=== PATIENT | male | born 1980 | race Native Hawaiian/Other Pacific Islander ===

== ENCOUNTER → 2021-07-27 13:37 | Outpatient (CLI) | payer OTHER, MEDICAID, SELFPAY ==
--- NOTE | 2021-07-27 | DI.MRI.S_ITS ---
PROCEDURE: MR KNEE LT WO CON INDICATIONS: Unilateral primary osteoarthritis, left knee TECHNIQUE: Noncontrast sagittal PD fast spin echo and T2 fast spin echo with fat saturation, sagittal 3-D FLASH with fat saturation; coronal T1 spin echo and PD fast spin echo with fat saturation, and axial PD fast spin echo with fat saturation through the knee. COMPARISON: None. FINDINGS: Menisci: Medial meniscus: Intact. Lateral meniscus: Ill-defined signal change involving the anterior horn and the anterior root although this could be related to myxoid degeneration. Ill-defined tear in the differential. Cruciate ligaments: Anterior cruciate ligament: Intact. Posterior cruciate ligament: Intact. Medial structures: The medial collateral ligament: Intact. Semimembranosus tendon: Intact. Visualized pes anserinus tendons: Intact. Bursal fluid: none. Lateral structures: The lateral collateral ligament intact. Biceps femoris tendon appears intact. Popliteus tendon grossly unremarkable. Iliotibial band appears intact. Anterior structures: Quadriceps tendon: Intact. Medial patellofemoral ligament: Intact. Lateral patellofemoral ligament: Intact. Patellar tendon: Mild tendinopathy. Anterior soft tissues: Prepatellar and superficial infrapatellar subcutaneous edema/fluid. Deep infrapatellar region: Normal. Bones and cartilage: Marrow: No focal marrow contusion or discrete low signal fracture line. Medial compartment: Mild diffuse surface fraying of the femoral and tibial articular cartilage. Lateral compartment: Diffuse surface fraying of the femoral cartilage. There is intrasubstance signal change and partial-thickness loss of the central tibial cartilage Patellofemoral compartment: Diffuse surface fraying of the patellar cartilage. Femoral trochlear cartilage appears grossly intact. Joint space: Effusion: Small joint effusion. Popliteal fossa: No Anderson's cyst. Loose bodies: None. IMPRESSION: Ill-defined signal changes involving the anterior root and horn of the lateral meniscus which could be related to myxoid degeneration although cannot exclude poorly defined tear. Please correlate to clinical exam findings. Tricompartmental joint degeneration as above. Small joint effusion Patellar tendinopathy with adjacent fluid/edema. Dictated by: Shad Castro M.D. on 07/27/2021 at 14:54 Approved by: Shad Castro M.D. on 07/27/2021 at 15:03
== END ==
PROVIDERS: PCP Family Medicine; Referring Provider Student in an Organized Health Care Education/Training Program; Visit Provider Student in an Organized Health Care Education/Training Program
DX: M17.12 Unilateral primary osteoarthritis, left knee (principal); M25.462 Effusion, left knee
CPT/HCPCS: 73721

== ENCOUNTER → 2022-03-27 08:59 | Outpatient (CLI) | payer OTHER, MEDICAID, SELFPAY ==
[2022-03-30 14:17] LABS: QuantiFERON Mitogen Value >10.00 IU/mL (.); QuantiFERON Nil Value 0.05 IU/mL (.); QuantiFERON TB Gold Plus Negative (Negative); QuantiFERON TB1 Ag Value 0.06 IU/mL (.); QuantiFERON TB2 Ag Value 0.05 IU/mL (.)
== END ==
PROVIDERS: PCP Family Medicine; Referring Provider Family Medicine; Visit Provider Family Medicine
DX: Z11.7 Encounter for testing for latent tuberculosis infection (principal)
CPT/HCPCS: 36415; 86480

== ENCOUNTER → 2025-06-08 16:34 | Outpatient (CLI) | payer OTHER, SELFPAY ==
[2025-06-08 17:23] LABS: COVID-19 CEPHEID 4-PLEX PCR Negative (Negative); Influenza A - CEPHEID Flu A NEGATIVE (NEGATIVE); Influenza B - CEPHEID Flu B NEGATIVE (NEGATIVE)
== END ==
PROVIDERS: Visit Provider Physician Assistant
DX: R53.83 Other fatigue (principal)
CPT/HCPCS: 87637